=== PATIENT | female | born 1980 | race African-American/Black ===

== ENCOUNTER 2022-03-31 11:11 | Emergency (ER) | payer OTHER ==
[2022-03-31 11:17] VITALS: BP 124/74
--- NOTE | 2022-03-31 12:00 | XRay Report ---
LEFT LITTLE FINGER 3 VIEWS INDICATION / CLINICAL INFORMATION: Left little finger injury/laceration. COMPARISON: None available. FINDINGS: BONES and JOINT(S): A large laceration is seen at the tip of the little finger with an associated mil dly displaced acute fracture of the tip of the distal phalanx. No dislocation. SOFT TISSUES: As above. There is mild generalized edema along the little finger. No radiopaque foreig n body. ADDITIONAL FINDINGS: None. IMPRESSION: 1. Left little finger laceration and acute fracture as above Signer Name: Baltazar Chung MD Signed: 03/31/2022 11:55 AM Workstation Name: [id number]
[2022-03-31] MEDS ORDERED: HYDROcodone/ACETAMINOPHEN 5-325 MG TAB PO ONE (12:39)
[2022-03-31] MEDS ORDERED: cephALEXin 500 MG CAP PO ONE (12:39)
--- NOTE | 2022-03-31 12:42 | Emergency Department Report ---
Upper Extremity - HPI Chief Complaint: Extremity Injury, Upper Stated Complaint: CUT FINGER Time Seen by Provider: 03/31/22 12:35 Upper Extremity: Left Little Finger Symptoms: Yes Pain with Movement, Yes Swelling, Yes Laceration or Abrasion, No Deformity, No Limited Range of Movement, No Numbness, No Weakness, No Bruising/Ecchymosis ED Review of Systems ROS: Stated complaint: CUT FINGER Other details as noted in HPI Constitutional: denies: chills, fever Eyes: denies: eye pain, eye discharge, vision change ENT: denies: ear pain, throat pain Respiratory: denies: cough, shortness of breath, wheezing Cardiovascular: denies: chest pain, palpitations Endocrine: no symptoms reported Gastrointestinal: denies: abdominal pain, nausea, diarrhea Genitourinary: denies: urgency, dysuria, discharge Musculoskeletal: other (Digit fingertip avulsion). denies: back pain, joint swelling, arthralgia Skin: denies: rash, lesions Neurological: denies: headache, weakness, paresthesias, vertigo Psychiatric: denies: anxiety, depression Hematological/Lymphatic: denies: easy bleeding, easy bruising ED Past Medical Hx - Medications Home Medications: Home Medications Medication Instructions Recorded Confirmed Last Taken Type HYDROcodone/APAP 5-325 [[place] 1 each PO Q6HR PRN #12 tablet 03/31/22 Unknown Rx 5-325 mg TAB] cephALEXin [Keflex] 500 mg PO Q8HR 7 Days #21 cap 03/31/22 Unknown Rx Upper Extremity Exam - Exam General: Vital signs noted. No distress. Alert and acting appropriately. Head and Torso: No HEENT Abnormality, No Neck Tenderness, No Chest/Lungs Abnormality, No Abdominal Tenderness, No Back Tenderness Shoulder Exam: Yes Normal Range of Motion in Shoulder, No Shoulder Tenderness, No Clavicle Tenderness, No Shoulder Deformity, No AC Joint Tenderness Arm Exam: No Arm/Humerus Tenderness, No Arm Deformity Elbow: No Elbow Tenderness, No Normal Range of Motion in Elbow, No Elbow Deformity Forearm: No Forearm Tenderness, No Forearm Deformity, No Pain with Pronation, No Pain with Supination Wrist: Yes Normal ROM in Wrist, No Wrist Tenderness, No Wrist Deformity, No Snuffbox Tenderness, No Pain with Axial Thumb Compression Hand: Yes Digit Tenderness (Left fifth digit tenderness), Yes Normal ROM in Digit(s), Yes Digit(s) Deformity (Left fifth digit tip avulsion with tuft fracture), No Hand Tenderness, No Hand Deformity, No Tendon Dysfunction CMS Exam: Yes Broken Skin, Yes Normal Distal Pulses, Yes Normal Capillary Refill, Yes Normal Distal Sensation ED Course Vital Signs 03/31/22 11:16 Pulse Rate 94 H Respiratory 18 Rate Blood Pressure 124/74 [Left] O2 Sat by Pulse 100 Oximetry - Laceration /Wound Repair Left Distal Finger Wound Location: upper extremity (Left fifth digit shaft avulsion) Wound Explored: clean Irrigated w/ Saline (ccs): 50 Betadine Prep?: Yes Anesthesia: 1% Lidocaine Volume Anesthetic (ccs): 3 (Digital block achieved) Wound Debrided: And required Wound Repaired With: sutures Suture Size/Type: 3:0, proline Number of Sutures: 4 Layer Closure?: No Sterile Dressing Applied?: Yes (2 x 2 Mario Alberto dermal band) Progress: Fingertip avulsion clean anesthesia vaginal digital block avulsion repaired 3-0 Prolene times 4 sutures. Edges well approximated sterile dressing applied patient given wound care instructions include antibiotics, follow-up with orthopedics and 1 to 2 days for wound check and symptoms of infection. And when returning primary for suture removal. I discussed in depth with patient and family member importance of monitoring for wound infection and possibility of failure to heal. Still with 90% avulsed ED Medical Decision Making - Radiology Data Radiology results: report reviewed, image reviewed EFT LITTLE FINGER 3 VIEWS INDICATION / CLINICAL INFORMATION: Left little finger injury/laceration. COMPARISON: None available. FINDINGS: BONES and JOINT(S): A large laceration is seen at the tip of the little finger with an associated mildly displaced acute fracture of the tip of the distal phalanx. No dislocation. SOFT TISSUES: As above. There is mild generalized edema along the little finger. No radiopaque foreign body. ADDITIONAL FINDINGS: None. IMPRESSION: 1. Left little finger laceration and acute fracture as above Signer Name: Baltazar Chung MD Signed: 03/31/2022 11:55 AM Workstation Name: [id number] Transcribed By: TODD Dictated By: Baltazar Chung MD Electronically Authenticated By: Baltazar Chung MD Signed Date/Time: 03/31/22 1155 DD/ 1154 TD/TT: - Medical Decision Making Plan for laceration repair see procedure note. This is an open tuft fracture, Betadine dressing applied patient given wound care instructions will follow-up with orthopedic/hand surgery in 1 to 2 days this pulses remain intact range of motion is intact patient be DC'd home in stable condition at this time. Critical care attestation.: If time is entered above; I have spent that time in minutes in the direct care of this critically ill patient, excluding procedure time. ED Disposition Clinical Impression: Open fracture of tuft of distal phalanx of finger Laceration of finger of left hand with damage to nail Qualifiers: Encounter type: initial encounter Finger: little finger Foreign body presence: without foreign body Qualified Code(s): S61.317A - Laceration without foreign body of left little finger with damage to nail, initial encounter Disposition: HOME / SELF CARE / HOMELESS Is pt being admited?: No Does the pt Need Aspirin: No Condition: Stable Instructions: Sutured Wound Care, [id number], Finger Fracture, Adult, [id number] Additional Instructions: Take medications as prescribed, wound care as directed. Follow-up with orthopedic surgery in 1 to 2 days call on Saturday morning to confirm appointment. Return to emergency department should symptoms worsen Prescriptions: cephALEXin [Keflex] 500 mg PO Q8HR 7 Days #21 cap HYDROcodone/APAP 5-325 [[place] 5-325 mg TAB] 1 each PO Q6HR PRN #12 tablet PRN Reason: Pain Referrals: EBONIE MACHADO MD [Staff Physician] - 3-5 Days Forms: Work/School Release Form(ED) Time of Disposition: 12:50
== END 2022-03-31 13:15 | disposition home or self-care (01) ==
LOC: ED 11:11
DX: S62.637A Displaced fracture of distal phalanx of left little finger, initial encounter for closed fracture (principal); S61.317A Laceration without foreign body of left little finger with damage to nail, initial encounter; X58.XXXA Exposure to other specified factors, initial encounter; Y93.89 Activity, other specified; Y92.89 Other specified places as the place of occurrence of the external cause; Y99.8 Other external cause status
CPT/HCPCS: 99283